=== PATIENT | female | born 1965 | race Caucasian/White ===

== ENCOUNTER 2017-05-20 22:17 | Emergency (ER) | payer OTHER ==
[2017-05-20] MEDS ORDERED: ASPIRIN 81 MG CHEWABLE TABLETS PO ONE (22:56)
[2017-05-20 23:32] VITALS: BP 135/95; PULSE 88; TEMP 98.6; BMI 46.8
--- NOTE | 2017-05-21 | PDOC ---
History of Present Illness - General History Source: Patient Exam Limitations: No Limitations - History of Present Illness Initial Comments: 05/21/17 00:01 The patient is a 51 year old female, with a significant past medical history of DM, HTN, Hypothyroidism, hx of PE and DVT who presents to the emergency department with SOB and lower extremity edema. Patient endorses L lower extremity edema which has worsened for the past 3 days. Patient has been experiencing dyspnea on exertion for the past few months which feels like her PE is returning. Patient reports recent admission at [facility] for bronchitis however reports her symptoms have worsened. Patient denies chest pain, headache or dizziness. Patient denies fever, chills, abdominal pain, nausea, vomit, diarrhea or constipation. Patient denies dysuria , frequency, urgency or hematuria. Patient denies sick contacts or recent travel. Allergies: egg Past surgical history: Gastric bypass (2002) Social history: Former smoker PCP: Dr. Louis Alan <Gloria Muñiz - Last Filed: 05/21/17 00:00> <Di Hobson - Last Filed: 05/21/17 06:36> - General Chief Complaint: Pain Stated Complaint: PAIN Time Seen by Provider: 05/20/17 22:32 Past History <Gloria Muñiz - Last Filed: 05/21/17 00:00> - Past Medical History Asthma: Yes Thyroid Disease: Yes (nodules) - Surgical History Abdominal Surgery: Yes (gastric bypass 2002) - Suicide/Smoking/Psychosocial Hx Smoking History: Never smoked Have you smoked in the past 12 months: No Number of Cigarettes Smoked Daily: 10 Information on smoking cessation initiated: No 'Breaking Loose' booklet given: 08/24/14 Hx Alcohol Use: No Drug/Substance Use Hx: No Substance Use Type: Heroin, Prescribed, Tranquilizers Hx Substance Use Treatment: Yes (rehab, detox, on [facility]) <Di Hobson - Last Filed: 05/21/17 06:36> - Past Medical History Allergies/Adverse Reactions: Allergies Allergy/AdvReac Type Severity Reaction Status Date / Time No Known Allergies Allergy Verified 05/21/17 02:36 Home Medications: Ambulatory Orders FA/Mv,Ca,Iron,Min/Lycopene/Lut [Centrum Tablet] 1 each PO ACDIN 08/24/14 Methadone HCl [Methadone Intensol] 80 mg PO DAILY 08/24/14 Bupropion HCl [Wellbutrin -] 100 mg PO DAILY 09/03/14 Clonazepam [Klonopin] 1 mg PO TID 09/03/14 Ergocalciferol (Vitamin D2) [Vitamin D2] 2,000 unit PO DAILY 09/03/14 Pantoprazole Sodium [Protonix] 40 mg PO DAILY 09/03/14 Aspirin [ASA -] 81 mg PO DAILY 05/21/17 Atorvastatin Ca [Lipitor] 20 mg PO HS 05/21/17 Ipratropium/Albuterol Sulfate [Combivent Respimat Inhal [place]] 4 gm IH DAILY 10/02 Isosorbide Mononitrate [Imdur -] 60 mg PO DAILY 05/21/17 Levothyroxine Sodium [Synthroid] 200 mcg PO DAILY 05/21/17 Metoprolol Succinate [Toprol Xl -] 12.5 mg PO BID 05/21/17 Oxycodone HCl/Acetaminophen [Percocet 10-325 mg Tablet] 1 each PO TID PRN Salmeterol/Fluticasone [Advair 500Mcg/50Mcg -] 1 inh IH BID 05/21/17 Review of Systems - Review of Systems Able to Perform ROS?: Yes Comments:: 05/21/17 00:01 GENERAL/CONSTITUTIONAL: No fever or chills. No weakness. HEAD, EYES, EARS, NOSE AND THROAT: No change in vision. No ear pain or discharge. No sore throat. CARDIOVASCULAR: No chest pain. +shortness of breath. RESPIRATORY: No cough, wheezing, or hemoptysis. GASTROINTESTINAL: No nausea, vomiting, diarrhea or constipation. GENITOURINARY: No dysuria, frequency, or change in urination. MUSCULOSKELETAL: No joint or muscle swelling or pain. No neck or back pain. SKIN: No rash NEUROLOGIC: No headache, vertigo, loss of consciousness, or change in strength/ sensation. ENDOCRINE: No increased thirst. No abnormal weight change. HEMATOLOGIC/LYMPHATIC: No anemia, easy bleeding, or history of blood clots. ALLERGIC/IMMUNOLOGIC: No hives or skin allergy. <Gloria Muñiz - Last Filed: 05/21/17 00:00> *Physical Exam - Vital Signs Last Vital Signs Temp Pulse Resp BP Pulse Ox 98.6 F 88 16 135/95 97 05/20/17 23:03 05/20/17 23:03 05/20/17 23:03 05/20/17 23:03 05/20/17 23:03 - Physical Exam Comments: 05/21/17 00:01 GENERAL: +Obese. Awake, alert, and fully oriented, in no acute distress HEAD: No signs of trauma EYES: PERRLA, EOMI, sclera anicteric, conjunctiva clear ENT: Auricles normal inspection, hearing grossly normal, nares patent, oropharynx clear without exudates. Moist mucosa NECK: Normal ROM, supple, no lymphadenopathy, JVD, or masses LUNGS: Breath sounds equal, clear to auscultation bilaterally. No wheezes, and no crackles HEART: Regular rate and rhythm, normal S1 and S2, no murmurs, rubs or gallops ABDOMEN: Soft, nontender, normoactive bowel sounds. No guarding, no rebound. No masses EXTREMITIES: Normal range of motion, no edema. No clubbing or cyanosis. No cords, erythema, or tenderness NEUROLOGICAL: Cranial nerves II through XII grossly intact. Normal speech, normal gait SKIN: Warm, Dry, normal turgor, no rashes or lesions noted. <Gloria Muñiz - Last Filed: 05/21/17 00:00> - Vital Signs Last Vital Signs Temp Pulse Resp BP Pulse Ox 98.6 F 88 16 135/95 97 05/20/17 23:03 05/20/17 23:03 05/20/17 23:03 05/20/17 23:03 05/20/17 23:03 <Di Hobson - Last Filed: 05/21/17 06:36> ED Treatment Course - LABORATORY CBC & Chemistry Diagram: 05/20/17 23:55 05/20/17 23:55 - RADIOLOGY Radiology Studies Ordered: Category Date Time Status CHEST PA & LAT [RAD] Stat Radiology 05/20/17 22:55 Ordered DUPLEX VASCUL [id number] [US] Stat Ultrasound 05/20/17 22:55 Ordered <Di Hobson - Last Filed: 05/21/17 06:36> Medical Decision Making - Medical Decision Making 05/21/17 00:10 Patient Name: CAMDEN RODRIGEZ THIS IS A PRELIMINARY REPORT FROM [facility] DATE OF SERVICE: 2017-05-20 23:14:49 IMAGES: [id number] EXAM: CT ABDOMEN AND PELVIS without contrast HISTORY: Rule out right hydronephrosis/stones COMPARISON: None. FINDINGS: Negative for right or left urinary tract stone or obstruction. Note made of a 5.8 cm left renal cyst. No bowel obstruction, free air, or free fluid. There is sigmoid diverticulosis. No diverticulitis or colitis. Normal appendix. No acute abnormalities of the liver, gallbladder, spleen, pancreas, or adrenal glands. Enlarged prostate. Bilateral L5 spondylolyses 05/21/17 01:42 Patient Name: MARIO HART THIS IS A PRELIMINARY REPORT FROM [facility] DATE OF SERVICE: 2017-05-21 00:58:13 IMAGES: 41 EXAM: Venous duplex bilateral lower extremities HISTORY: Rule out DVT COMPARISON: None. FINDINGS: There is no DVT in the right or left lower extremity. IMPRESSION: No DVT. THIS DOCUMENT HAS BEEN ELECTRONICALLY SIGNED 05/21/17 06:33 Pt refusing CTA chest, as she had one 2 weeks ago and she had another 2 days prior to that. 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 05/21/17 06:35 Pt's EKG is normal; Pt's pulsox is also normal. <Di Hobson - Last Filed: 05/21/17 06:36> *DC/Admit/Observation/Transfer - Attestations Scribe Attestion: 05/21/17 00:01 Documentation prepared by Gloria Muñiz, acting as medical instructor for Di Hobson MD/DO. <Gloria Muñiz - Last Filed: 05/21/17 00:00> - Discharge Dispostion Admit: No <Di Hobson - Last Filed: 05/21/17 06:36> Diagnosis at time of Disposition: Obesity, Dyspnea - Discharge Dispostion Disposition: HOME Condition at time of disposition: Stable - Patient Instructions Printed Discharge Instructions: DI for Obesity -- Adult
[2017-05-21 00:22] LABS: BASOPHIL 0.4 % (0-2.0); EOSINOPHIL 3.1 % (0-4.5); MCH 25.1 pg (25.7-33.7); MCHC 32.4 g/dl (32.0-36.0); MEAN CELL VOLUME 77.5 fl (80-96); MEAN PLT VOLUME 7.5 fl (7.5-11.1); NEUTROPHILS 62.4 % (42.8-82.8); PLATELET COUNT 246 K/MM3 (134-434); RDW 19.5 % (11.6-15.6); WHITE BLOOD COUNT 4.9 K/mm3 (4.0-10.0)
[2017-05-21 00:23] LABS: URINE APPEARANCE CLEAR; URINE BILIRUBIN NEGATIVE (NEGATIVE); URINE BLOOD NEGATIVE (NEGATIVE); URINE COLOR YELLOW; URINE GLUCOSE (UA) NEGATIVE (NEGATIVE); URINE KETONE NEGATIVE (NEGATIVE); URINE NITRITE NEGATIVE (NEGATIVE); URINE PROTEIN NEGATIVE (NEGATIVE); URINE UROBILINOGEN 4.0 E.U/dl mg/dL (0.2-1.0)
[2017-05-21 00:34] LABS: INR 0.96 (0.82-1.09); PROTHROMBIN TIME (PATIENT) 10.8 SEC (9.98-11.88)
[2017-05-21] MEDS ORDERED: ASPIRIN 81 MG CHEWABLE TABLETS ONE (01:03)
[2017-05-21 01:16] LABS: ALBUMIN 3.1 g/dl (3.4-5.0); ANION GAP 6 (8-16); BILIRUBIN,TOTAL 0.3 mg/dL (0.2-1.0); CALCIUM 8.3 mg/dL (8.5-10.1); CO2 31 mmol/L (21-32); CREATININE 0.6 mg/dL (0.55-1.02); GLUCOSE,RANDOM 86 mg/dL (74-106); SGOT/AST 15 U/L (15-37); SGPT/ALT 24 U/L (12-78); TOT PROT 5.8 g/dl (6.4-8.2)
[2017-05-21 01:18] LABS: ALK PHOS 97 U/L (45-117); CPK 100 IU/L (26-192); TROPONIN I < 0.02 ng/ml (0.00-0.05)
--- NOTE | 2017-05-21 12:53 | EKG ---
Test Reason : Blood Pressure : / mmHG Vent. Rate : 083 BPM Atrial Rate : 083 BPM P-R Int : 208 ms QRS Dur : 076 ms QT Int : 382 ms P-R-T Axes : 041 051 002 degrees QTc Int : 448 ms NORMAL SINUS RHYTHM NORMAL ECG NO PREVIOUS ECGS AVAILABLE Confirmed by LUIS A KENYON MD ([id number]) on 05/21/2017 12:52:34 PM Referred By: Confirmed By:LUIS A KENYON MD
[2017-05-21 13:02] LABS: URINE LEUK ESTERASE Negative (NEGATIVE)
== END 2017-05-21 02:46 | disposition home or self-care (01) ==
LOC: JER 22:17
DX: I10 Essential (primary) hypertension (principal); E11.9 Type 2 diabetes mellitus without complications; E03.9 Hypothyroidism, unspecified; Z86.718 Personal history of other venous thrombosis and embolism; Z86.711 Personal history of pulmonary embolism; Z87.898 Personal history of other specified conditions; Z98.84 Bariatric surgery status; E66.9 Obesity, unspecified; Z68.42 Body mass index [BMI] 45.0-49.9, adult
CPT/HCPCS: 36415; 71020-TC; 80053; 81003; 82550; 84484; 85025; 85379; 85610; 93005; 93010; 93970-TC; 99281-25; 99282-25